=== PATIENT | male | born 1975 | race Caucasian/White ===

== ENCOUNTER 2019-09-05 13:01 | Emergency (ER) | payer BC ==
[2019-09-05 14:21] VITALS: BP 139/94
--- NOTE | 2019-09-05 14:50 | UC ---
Skin Complaint HPI - HPI Summary HPI Summary: 44 y/o male presents to the urgent care c/o 4 ticks on both arms on evening 09/03/2019. Pt reports he removed them but one on the RT upper arm was engorged. He works heavily in the [employer]. Now the area is red, tender. Pt has been having joint pain and generalized myalgias for the past few months, pt pulls ticks off of himself frequently and has never taken prophylactic treatment to prevent Lyme since they haven't been engorged. However, this time it was very engorged that he is concerned. Pt has attributed the joint pain to aging or physical activity. Pt denies fever, SHEETS, dizziness, SOB, chest pain, abdominal pain, N/V/D. - History of Current Complaint Chief Complaint: UCSkin Time Seen by Provider: 09/05/19 14:46 Stated Complaint: TICK BITE Hx Obtained From: Patient Onset/Duration: Gradual Onset, Lasting Days - 3 days, Resolved - tick removal Skin Exposure Onset/Duration: Days Ago - 3 days Timing: Constant Onset Severity: Mild Current Severity: Mild Pain Intensity: 1 Pain Scale Used: 0-10 Numeric Location: Discrete - B/L upper arms w/ 4 tick bites Character: Redness Aggravating Factor(s): Touch Alleviating Factor(s): Nothing Associated Signs & Symptoms: Positive: Rash - 4 tick bites on B/L upper arms, Tenderness - mild. Negative: Fever, Chills, Drainage Related History: Possible Reaction to: Insect - tick bites - Allergy/Home Medications Allergies/Adverse Reactions: Allergies Allergy/AdvReac Type Severity Reaction Status Date / Time iodine Allergy Unknown Verified 09/05/19 14:20 Reaction Details SHRIMP Allergy Severe Vomiting Uncoded 09/27/15 17:11 Home Medications: Home Medications Fluticasone-Salmeterol 250-50* [Advair Diskus 250-50*] 1 puff INH BID PRN [History Confirmed 09/05/19] PMH/Surg Hx/FS Hx/Imm Hx Previously Healthy: Yes Respiratory History: Asthma - Surgical History Surgical History: Yes Surgery Procedure, Year, and Place: right knee meniscus repair (tear),WISDOM TEETH - Family History Known Family History: Positive: Diabetes - Social History Occupation: Employed Full-time Lives: With Family Alcohol Use: Occasionally Substance Use Type: None Smoking Status (MU): Former Smoker When Did the Patient Quit Smoking/Using Tobacco: 1996 - Immunization History Most Recent Tetanus Shot: <5 YEARS OF 09/27/15 Review of Systems All Other Systems Reviewed And Are Negative: Yes Constitutional: Positive: Fatigue, Other - body aches Skin: Positive: Rash - tick bites on B/l upper arms Eyes: Positive: Negative ENT: Positive: Negative Respiratory: Positive: Negative Cardiovascular: Positive: Negative Gastrointestinal: Positive: Negative Genitourinary: Positive: Negative Motor: Positive: Negative Neurovascular: Positive: Negative Musculoskeletal: Positive: Arthralgia Neurological: Positive: Negative Psychological: Positive: Negative Is Patient Immunocompromised?: No Physical Exam - Summary Physical Exam Summary: Vital Signs Reviewed: Yes General: well developed, well nourished male sitting in the examining table w/o any apparent distress. Eyes: Positive: Conjunctiva Clear - PERRLA, EOMI ENT: Positive: Normal ENT inspection, Hearing grossly normal, Pharynx normal, TMs normal Neck: Positive: Supple, Nontender, No Lymphadenopathy Respiratory: Positive: Chest nontender, Lungs clear, Normal breath sounds Cardiovascular: Positive: RRR, No Murmur, Pulses Normal Abdomen Description: Positive: Nontender, No Organomegaly, Soft. Negative: CVA Tenderness (R), CVA Tenderness (L) Bowel Sounds: Positive: Present Musculoskeletal: Positive: Strength Intact, ROM Intact, No Edema Neurological Exam: Normal Psychological Exam: Normal Skin: Positive: rashes - Lateral side of both upper arms with tick bites with surrounding erythema, 2 in the LF upper arm and 2 in the RT upper arm. non tender to palpation. ticks no longer present, no swelling or drainage observed.Also mid chest with an erythematous scaling lesion with a central clearance and raised borders about 2cm x 2cm in size. Triage Information Reviewed: Yes Vital Signs: Initial Vital Signs Temp 97.3 F 09/05/19 14:16 Pulse 89 09/05/19 14:16 Resp 18 09/05/19 14:16 BP 139/94 09/05/19 14:16 Pulse Ox 99 09/05/19 14:16 Course/Dx - Course Course Of Treatment: 44 y/o male presents to the urgent care c/o 4 ticks on both arms on evening 09/03/2019. Pt reports he removed them but one on the RT upper arm was engorged. He works heavily in the [employer]. Now the area is red, tender. Pt has been having joint pain and generalized myalgias for the past few months, pt pulls ticks off of himself frequently and has never taken prophylactic treatment to prevent Lyme since they haven't been engorged. However, this time it was very engorged that he is concerned. Pt has attributed the joint pain to aging or physical activity. Pt denies fever, SHEETS, dizziness, SOB, chest pain, abdominal pain, N/V/D. Hx obtained. Pt w/ 4 tick bites, 2 in the left upper arm and 2 in the Rt upper arm. ticks not present. also mid chest with an erythematous scaling lesion with a central clearance and raised borders about 2cm x 2cm in size, possible ringworm on examination. Antibiotic prophylaxis with Doxycycline given to the patient to prevent lyme Disease.. Pt tolerated well medication. Pt educated on Lyme. Pt Rx Bacitracin oint to apply over tick bites and Ketoconazole topical cream for the ringworm rash. Pt advised to observe the area for the development or Erythema Migrans for up to 30 days following exposure. F/u w/ her PCP in 2-3 weeks for Lyme Serology if he still concerned about Lyme. Also Advised if he develops fever or erythema Migrans to return to the clinic or PCP for further treatment .Pt's BP is elevated today advised to decrease salt in diet, monitor BP and f/u with PCP for further management. D/C instructions explained. Pt understood and agreed with plan of care. - Differential Diagnoses - Skin Complaint Differential Diagnoses: Abscess, Contact Dermatitis, Impetigo, MRSA, Tick Born Illness, Tinea, Urticaria, Other - tick bites, bee sting - Diagnoses Provider Diagnosis: Tick bite, Ringworm of body, Elevated BP without diagnosis of hypertension Discharge ED - Sign-Out/Discharge Documenting (check all that apply): Patient Departure - D/c home All imaging exams completed and their final reports reviewed: No Studies - Discharge Plan Condition: Stable Disposition: HOME Prescriptions: Bacitracin OINTMENT* 1 applic TOPICAL BID #1 tube Ketoconazole 2 % CREAM (NF) [Nizoral 2% CREAM (NF)] 1 applic TOPICAL DAILY #1 tube Patient Education Materials: Tick Bite (ED), Skin Yeast Infection (ED) Referrals: Prasad Becker MD [Primary Care Provider] - 2 Weeks Brody PRICE,Nickolas Torres [Medical Doctor] - If Needed Additional Instructions: 1- Please observe the area for the development or Erythema Migrans for upto 30 days following exposure. Components of the tick saliva can cause transient erythema that should not be confused with Erythema Migrans. If you develop the bull's eye rash, fever, joint pains please return to the urgent care or f/u with your PCP or Dr Skinner for further management. Apply Bacitracin oint around tick bite as directed. Apply Bacitrain oint as directed over tick bites to prevent infection. 2-Antibiotic prophylaxis with Doxycycline was given to you today to prevent lyme Disease. Lyme serology can be drawn in 2 weeks with your PCP to r/o Lyme disease since there is probability of negative results at early exposure. 3- Plese apply ketoconazole topical cream as directed to alleviate rash on the center of chest. If not improvement please f/u w/ your PCP for further management 4-Your BP is elevated today. please decrease salt in your diet, monitor BP and if it continues to be elevated please f/u with your PCP for further management. - Billing Disposition and Condition Condition: STABLE Disposition: Home - Attestation Statements Provider Attestation: Per institutional requirements, I have reviewed the chart, however, I was not consulted specifically or made aware of this patient by the midlevel provider. I did not personally evaluate, interact with , or disposition this patient.
[2019-09-05] MEDS ORDERED: DOXYcycline CAP(*) 100 MG PO ONE (15:10)
== END 2019-09-05 15:25 | disposition home or self-care (01) ==
LOC: UCEAST 13:01
DX: S40.862A Insect bite (nonvenomous) of left upper arm, initial encounter (principal); S40.861A Insect bite (nonvenomous) of right upper arm, initial encounter; B35.4 Tinea corporis; R03.0 Elevated blood-pressure reading, without diagnosis of hypertension; J45.909 Unspecified asthma, uncomplicated; Z87.891 Personal history of nicotine dependence; Z91.041 Radiographic dye allergy status; Z91.013 Allergy to seafood; Z79.51 Long term (current) use of inhaled steroids; W57.XXXA Bitten or stung by nonvenomous insect and other nonvenomous arthropods, initial encounter; Y92.9 Unspecified place or not applicable
CPT/HCPCS: 99212; A9270-GY; G0463